=== PATIENT | female | born 1940 | race Caucasian/White ===

== ENCOUNTER 2017-05-28 20:38 | Emergency (ER) | payer OTHER, BC ==
[~2017-05-28] VITALS: Ht 165.1 cm; Wt 90.8 kg
[~2017-05-28 20:38] MED LIST: ASPIR 8181 M1 PO; Ascorbic Acid,Ester- PO; BENICAR HCT 401 EAC1 PO; BYSTOLIC5 MG PO; CELECOXIB200 MG PO; Caltrate 600/400 PO; EFFEXOR50 MG PO; EFFEXOR75 MG PO; ELAVIL100 MG PO; Elavil PO; IRON325 M1 PO; JANUVIA25 M1 PO; MYRBETRIQ50 MG PO; OXYCODONE HCL5 MG PO; PRILOSEC20 MG PO; SYNTHROID25 MCG PO; TEKTURNA HCT PO; ULTRAM50 MG PO; Vitamin D, Drisdol PO; XARELTO10 MG PO; ZOCOR10 MG PO
[2017-05-28 21:26] LABS: HEMATOCRIT 37.5 % (36.0-46.0); HEMOGLOBIN 13.3 G/DL (11.9-15.5); MCH 31.8 PG (29.0-34.0); MCHC 35.5 G/DL (30.0-36.0); MCV 89.7 FL (83-99); PLATELET COUNT 155 K/uL (156-360); RBC DIS.WIDTH-SD 42.7 % (39-53); RED BLOOD COUNT 4.18 M/uL (3.80-5.20); WHITE BLOOD COUNT 4.8 K/uL (4.1-10.2)
[2017-05-28 21:39] LABS: CHLORIDE 99 mEq/L (99-109); POTASSIUM 3.7 mEq/L (3.7-5.4); SODIUM 137 mEq/L (136-147)
[2017-05-28 21:40] LABS: GLUCOSE 70 mg/dL (70-99)
[2017-05-28 21:44] LABS: GFR ESTIMATE (CALCULATED) 57 mL/min/
[2017-05-28 21:45] LABS: UREA NITROGEN (BUN) 18 mg/dL (9-23)
[2017-05-29 03:24] LABS: TROP-I INTERPRETATION NEGATIVE; TROPONIN-I 0.01 ng/mL (0.0-0.30)
[2017-05-29 06:37] LABS: APPEARANCE CLEAR ((CLEAR)); BILIRUBIN NEGATIVE; BLOOD NEGATIVE; COLOR STRAW ((YELLOW)); GLUCOSE (STRIP) NEGATIVE; KETONES NEGATIVE; LEUKOCYTES NEGATIVE; NITRITE NEGATIVE; PROTEIN (STRIP) NEGATIVE; SPECIFIC GRAVITY 1.005 (1.000-1.030); UCUL ADDED? NO; UROBILINOGEN 0.2 MG/DL (0.2-1.0)
[2017-05-29] MEDS ORDERED: PROVENTIL HFA6.7 GM IH (06:43)
[2017-05-29] MEDS ORDERED: ALBUTEROL2.5 MG/3 M IH (07:15)
[2017-05-29 07:18] VITALS: BP 139/88
== END 2017-05-29 07:19 | disposition home or self-care (01) ==
LOC: EME 20:38
PROVIDERS: Emergency Medicine
DX: J06.9 Acute upper respiratory infection, unspecified (principal); R53.1 Weakness; I10 Essential (primary) hypertension; E11.9 Type 2 diabetes mellitus without complications; Z79.84 Long term (current) use of oral hypoglycemic drugs
CPT/HCPCS: 70450; 71046; 80048; 81003; 83605; 84484; 85027; 87040; 87502; 93005; 94640; 99281; 99285; J1100; J7040